=== PATIENT | male | born 1960 | race African-American/Black ===

== ENCOUNTER 2023-08-28 08:13 | Outpatient (RCR) | payer BC, SELFPAY | END 2023-08-28 23:59 | disposition home or self-care (01) | LOC: CRHB 08:13 | PROVIDERS: ATTENDING PHYSICIAN Internal Medicine Cardiovascular Disease | DX: Q24.5 Malformation of coronary vessels (principal); Z98.890 Other specified postprocedural states | CPT/HCPCS: 93797; 93798 ==

== ENCOUNTER 2023-09-25 08:17 | Outpatient (RCR) | payer BC, SELFPAY | END 2023-09-25 23:59 | disposition home or self-care (01) | LOC: CRHB 08:17 | PROVIDERS: ATTENDING PHYSICIAN Internal Medicine Cardiovascular Disease; FAMILY PHYSICIAN Internal Medicine | DX: Q24.5 Malformation of coronary vessels (principal); Z98.890 Other specified postprocedural states | CPT/HCPCS: 93797; 93798 ==

== ENCOUNTER 2023-10-02 08:46 | Outpatient (RCR) | payer BC, SELFPAY | END 2023-10-02 23:59 | disposition home or self-care (01) | LOC: CRHB 08:46 | PROVIDERS: ATTENDING PHYSICIAN Internal Medicine Cardiovascular Disease; FAMILY PHYSICIAN Internal Medicine | DX: Q24.5 Malformation of coronary vessels (principal); Z98.890 Other specified postprocedural states | CPT/HCPCS: 93797; 93798 ==

== ENCOUNTER 2024-08-17 09:55 | Emergency (ER) | payer BC, SELFPAY ==
[2024-08-17 10:10] VITALS: BP 135/98
--- NOTE | 2024-08-17 12:21 | ED.GENMED ---
History of Present Illness
General
Chief Complaint: Anal/Rectal Problem
Time Seen by Provider: 08/17/24 11:05
History of Present Illness
History of Present Illness:
64-year-old male presents to the emergency department for evaluation of a left gluteal/perianal abscess over the past week. Has had intermittent fevers and chills throughout this time. Did not take any antipyretics this morning. Having difficulty
sitting secondary to pain. Denies any nausea vomiting or diarrhea
Past History
Past History
ED Past Medical History: None
ED Past Surgical History: None
Social History
Tobacco: Non-smoker
Personal:
Living: with family
Review of Systems
Review of Systems
Allergies reviewed?: Yes
All Other Systems: ROS reviewed and negative except as documented in HPI and ROS
Phy Exam
Physical Exam
Physical Exam:
GEN: Well appearing, NAD, WDWN
HEENT: Oral mucosa moist, no scleral icterus
Cardiac: Regular rate
Lung: No respiratory distress, no tachypnea
Rectal: Fluctuant abscess to the left inferior gluteal/perianal region, no active discharge, does not cross the anal verge
MSK: No gross deformity or injuries
Skin: Good color, no pallor or jaundice, no rashes
Neuro: AO x3, moves all extremities freely
Psych: Calm, cooperative
Course
Vital Signs
Initial and Last Documented VS:
Initial Vital Signs
Temp Pulse Resp BP Pulse Ox
97.5 F 91 16 135/98 97
08/17/24 10:10 08/17/24 10:10 08/17/24 10:10 08/17/24 10:10 08/17/24 10:10
Last Documented Vital Signs
Temp Pulse Resp BP Pulse Ox
97.5 F 91 16 135/98 97
08/17/24 10:10 08/17/24 10:10 08/17/24 10:10 08/17/24 10:10 08/17/24 10:10
Procedures
Incision/Drainage/Joint Aspiration
left perianal:
Anethesia: 1% Lidocaine with Epi
Preparation: cleaned with alcohol wipe
Type of procedure: incise and drain
Nature of site: abscess
Description of abscess: greater than 3cm
Loculations broken up: Yes
How much fluid was obtained?: large amount
Fluid description: purulent
Treatment: packed with gauze
MDM/Problems Addressed
MDM/Problems Addressed:
No indication for imaging as the abscess does not appear to cross the anal verge. He is clinically well with normal vitals thus I do not have concerns at this time for systemic disease.
*Critical Care Note
Total Time (30-74mins, 75-104mins- exclusive of procedures): Not Applicable
ED Attending Note
-
Portions of this chart may have been created with voice recognition software.� Occasional wrong word or��sound alike� substitutions may have occurred due to the inherent limitations of voice recognition software.
Discharge Plan
Departure
Patient Disposition: Home (Routine Discharge)
Date of Disposition: 08/17/24
Time of Disposition: 12:24
Patient with high blood pressure during this ER visit?: No
Discharge Problem:
Abscess, perianal
Instructions: Anal Abscess and Fistula, Adult (DC)
Prescriptions:
New
amoxicillin-pot clavulanate 875-125 mg tablet
1 tab PO BID 10 Days Qty: 20 0RF
No Action
simvastatin 20 MG tablet
20 mg PO QPM
montelukast 10 MG tablet
10 mg PO QPM
sulfamethoxazole-trimethoprim 1 TABLET tablet
1 tab PO BID Qty: 14 0RF
oxycodone-acetaminophen 5 MG/325 MG tablet
1 tab PO Q6HPRN PRN (Reason: pain) Qty: 15 0RF
Referrals:
Sukumar Conner MD [Family Provider] -
Activity Restrictions/Additional Instructions:
Take antibiotics as prescribed
Return to the ER in 2 days for packing removal; however, in some cases, when you change the bandage, the packing may fall out. If that occurs, there is no need to return to the ER. Once the packing is out, you may shower and soak the area
Return to the ER if you develop a fever or chills
Interventions
Interventions:
*Risk Screen - Suicide Last Done: 08/17/24 12:58
*General Assessment Last Done: 08/17/24 12:58
*Neglect/Abuse Screening Last Done: 08/17/24 12:58
*ED COVID-19 Vaccine History Last Done: 08/17/24 12:58
*Nursing Disposition Last Done: 08/17/24 12:59
ED-Skin Assessment Last Done: 08/17/24 12:58
Discharge Date and Time
Discharge Date/Time: 08/17/24 12:59
Print Language: SENEGALESE
== END 2024-08-17 12:59 | disposition home or self-care (01) ==
LOC: EMR 09:55
PROVIDERS: EMERGENCY PHYSICIAN Student in an Organized Health Care Education/Training Program; FAMILY PHYSICIAN Internal Medicine
DX: K61.0 Anal abscess (principal)
CPT/HCPCS: 46050; 99283

== ENCOUNTER 2024-08-19 09:57 | Emergency (ER) | payer BC, SELFPAY ==
[2024-08-19 10:10] VITALS: BP 144/109
--- NOTE | 2024-08-19 10:54 | ED.GENMED ---
History of Present Illness
General
Chief Complaint: Wound Check/Suture Removal
Source: patient
Exam Limitations: none
Time Seen by Provider: 08/19/24 10:43
Nursing documentation reviewed up to this point in time: agreed with
History of Present Illness
History of Present Illness:
This is a 64-year-old male with past medical history of A-fib, hyperlipidemia who presents emergency department for a wound check and packing removal. Patient reports that he was seen in our ER 2 days ago for a perianal abscess and had packing
placed. Patient reports that the wound has been draining and the drainage slowed down as of late. Patient is going to see colorectal surgeon with him for follow-up. Patient denies any fevers chills, denies any nausea or vomiting, denies any
abdominal pain, denies any wrapping, states pain is in all controlled and his pain was relieved with the incision and drainage.
Past History
Past History
ED Past Medical History: None
ED Past Surgical History: None
Social History
Tobacco: Non-smoker
Personal:
Living: with family
Review of Systems
Review of Systems
All Other Systems: ROS reviewed and negative except as documented in HPI and ROS
Phy Exam
Physical Exam
Physical Exam:
General: Patient is well appearing and in no acute distress; non-toxic
Skin: Warm and dry, no rashes or lesions
Head: Normocephalic, atraumatic
Eyes: Sclera non-icteric. EOMs intact.
Cardiac: Regular rate
Pulm: Normal respiratory effort
Abdomen: No abdominal tenderness to palpation
Genitourinary: Small incision noted to the left inferior gluteal/perianal region with packing in place no surrounding cellulitis
Neuro: CN II-XII intact, no focal neurologic deficits.
Psychiatric: Appropriate mood and affect.
Course
Vital Signs
Initial and Last Documented VS:
Initial Vital Signs
Temp Pulse Resp BP Pulse Ox
97.4 F 76 16 144/109 97
08/19/24 10:10 08/19/24 10:10 08/19/24 10:10 08/19/24 10:10 08/19/24 10:10
Last Documented Vital Signs
Temp Pulse Resp BP Pulse Ox
97.4 F 77 16 160/91 98
08/19/24 10:10 08/19/24 11:50 08/19/24 11:50 08/19/24 11:50 08/19/24 11:50
MDM/Problems Addressed
Differential Diagnosis Includes:
wound check and packing removal
MDM/Problems Addressed:
64-year-old male with a past medical history of A-fib, hyperlipidemia presents to emergency department today with a wound check. He had a incision change done 2 days ago presents today for packing removal. The incision site is intact and there is
no surrounding cellulitis, the packing was without difficulty. The wound was dressed. Home care discussed, discussed sitz bath. Patient stable for discharge. Patient is going to follow-up with colorectal.
Chronic conditions affecting care:
n/a
Acute Exacerbation and/or Progression of Chronic Illness:
n/a
*Pulse Oximetry
Patient hypoxic: no
*Critical Care Note
Total Time (30-74mins, 75-104mins- exclusive of procedures): Not Applicable
Data Reviewed
Review of Other/Old Records Reveals: Records (Reviewed progress, reviewed other physician documentation for 08/17/2024 where patient was seen for incision into a perianal abscess)
Source: patient and records
Patient Management
Escalation/DeEscalation of care consider admission/obs:
admit not indicated, patient stable for discharge
ED Attending Note
-
Portions of this chart may have been created with voice recognition software.� Occasional wrong word or��sound alike� substitutions may have occurred due to the inherent limitations of voice recognition software.
Discharge Plan
Departure
Patient Disposition: Home (Routine Discharge)
Date of Disposition: 08/19/24
Time of Disposition: 11:29
Patient with high blood pressure during this ER visit?: Yes
Condition: Good
Discharge Problem:
Wound check, abscess, Abscess packing removal
Instructions: Wound Care (DC), BLOOD PRESSURE
Prescriptions:
No Action
simvastatin 20 MG tablet
20 mg PO QPM
montelukast 10 MG tablet
10 mg PO QPM
sulfamethoxazole-trimethoprim 1 TABLET tablet
1 tab PO BID Qty: 14 0RF
oxycodone-acetaminophen 5 MG/325 MG tablet
1 tab PO Q6HPRN PRN (Reason: pain) Qty: 15 0RF
amoxicillin-pot clavulanate 875-125 mg tablet
1 tab PO BID 10 Days Qty: 20 0RF
Referrals:
Sukumar Conner MD [Family Provider] -
Activity Restrictions/Additional Instructions:
I recommend sits baths to help encourage continued drainage. Please finish your course of your antibiotic. Please follow up with colorectal as discussed.
PLEASE RETURN TO THE ER SHOULD YOU DEVELOP FEVERS OR CHILLS, RECTAL PAIN, ABDOMINAL PAIN, REDNESS OR RASH, OR ANY OTHER SIGNS OR SYMPTOMS WORRISOME
Interventions
Interventions:
*Risk Screen - Suicide Last Done: 08/19/24 10:10
*General Assessment Last Done: 08/19/24 11:35
*Neglect/Abuse Screening Last Done: 08/19/24 11:45
ED- Fall Risk Assessment Last Done: 08/19/24 11:35
*ED COVID-19 Vaccine History Last Done: 08/19/24 11:35
*Nursing Disposition Last Done: 08/19/24 11:50
ED-Skin Assessment Last Done: 08/19/24 11:35
Discharge Date and Time
Discharge Date/Time: 08/19/24 11:50
Print Language: GIBRALTARIAN
--- NOTE | 2024-08-19 10:59 | EDRN ---
Daylin Adams PA in w/ pt at tis time.
[2024-08-19 11:35] VITALS: BMI 27.3
[2024-08-19 11:50] VITALS: BP 160/91
== END 2024-08-19 11:50 | disposition home or self-care (01) ==
LOC: EMR 09:57
PROVIDERS: EMERGENCY PHYSICIAN Emergency Medicine; FAMILY PHYSICIAN Internal Medicine
DX: Z48.817 Encounter for surgical aftercare following surgery on the skin and subcutaneous tissue (principal); I48.91 Unspecified atrial fibrillation; E78.00 Pure hypercholesterolemia, unspecified
CPT/HCPCS: 99282